=== PATIENT | male | born 1960 | race Caucasian/White ===

== ENCOUNTER 2021-11-08 14:33 | Emergency (ER) | payer MEDICARE, MEDICAID ==
[~2021-11-08] VITALS: Ht 152.4 cm; Wt 56.0 kg
[2021-11-08 14:36] VITALS: BP 133/55
[2021-11-08] MEDS ORDERED: TOPUD PO (17:00)
[2021-11-08] MEDS ORDERED: IBUP-2028 MT (17:00)
== END 2021-11-08 17:36 | disposition home or self-care (01) ==
LOC: ER 14:33
DX: S05.11XA Contusion of eyeball and orbital tissues, right eye, initial encounter (principal); H91.90 Unspecified hearing loss, unspecified ear; Y04.0XXA Assault by unarmed brawl or fight, initial encounter; Y93.89 Activity, other specified; Y92.018 Other place in single-family (private) house as the place of occurrence of the external cause
CPT/HCPCS: 70486; 99284